=== PATIENT | female | born 1950 | race Caucasian/White ===

== ENCOUNTER 2020-06-17 11:11 | Emergency (ER) | payer MEDICARE, OTHER ==
[~2020-06-17] VITALS: Ht 167.6 cm; Wt 112.5 kg
[2020-06-17] MEDS ORDERED: XARELTO10 MG PO (11:25)
[2020-06-17] MEDS ORDERED: FENOFIBRATE160 MG PO (11:25)
[2020-06-17] MEDS ORDERED: TELMISARTAN40 MG PO (11:26)
[2020-06-17] MEDS ORDERED: ZETIA10 MG PO (11:26)
[2020-06-17] MEDS ORDERED: SPIRONOLACTONE25 MG PO (11:26)
[2020-06-17] MEDS ORDERED: TORSEMIDE20 MG PO (11:27)
[2020-06-17] MEDS ORDERED: NEXIUM 40 MG CA40 M1 PO (11:27)
[2020-06-17] MEDS ORDERED: HYDROCHLOROTHIA25 M2 PO (11:27)
[2020-06-17] MEDS ORDERED: TESSALON PERLE100 MG PO (11:27)
[2020-06-17] MEDS ORDERED: LEVSIN0.125 MG PO (11:28)
[2020-06-17] MEDS ORDERED: CLONIDINE HCL0.2 M2 PO (11:29)
[2020-06-17] MEDS ORDERED: PREDNISONE 10 M10 M1 PO (11:46)
[2020-06-17] MEDS ORDERED: DIPHENHIST50 MG PO (11:46)
[2020-06-17 12:10] VITALS: BP 134/68
== END 2020-06-17 12:11 | disposition home or self-care (01) ==
LOC: M.ERS 11:11
DX: T80.89XA Other complications following infusion, transfusion and therapeutic injection, initial encounter (principal); I10 Essential (primary) hypertension; E78.00 Pure hypercholesterolemia, unspecified; K21.9 Gastro-esophageal reflux disease without esophagitis; I48.91 Unspecified atrial fibrillation; Z88.8 Allergy status to other drugs, medicaments and biological substances; Y84.8 Other medical procedures as the cause of abnormal reaction of the patient, or of later complication, without mention of misadventure at the time of the procedure; Y92.89 Other specified places as the place of occurrence of the external cause

== ENCOUNTER 2020-12-05 09:35 | Emergency (ER) | payer OTHER, MEDICARE ==
[~2020-12-05] VITALS: Ht 165.1 cm; Wt 113.4 kg
[~2020-12-05 09:35] MED LIST: CLONIDINE HCL0.2 M2 PO; DIPHENHIST50 MG PO; FENOFIBRATE160 MG PO; HYDROCHLOROTHIA25 M2 PO; LEVSIN0.125 MG PO; NEXIUM 40 MG CA40 M1 PO; PREDNISONE 10 M10 M1 PO; SPIRONOLACTONE25 MG PO; TELMISARTAN40 MG PO; TESSALON PERLE100 MG PO; TORSEMIDE20 MG PO; XARELTO10 MG PO; ZETIA10 MG PO
[2020-12-05] MEDS ORDERED: METOPROLOL SUC100 MG PO (09:47)
[2020-12-05] MEDS ORDERED: PROTONIX40 M2 PO (09:47)
[2020-12-05] MEDS ORDERED: TORSEMIDE20 MG PO (09:47)
[2020-12-05] MEDS ORDERED: HYDROCHLOROTHIA25 M1 PO (09:47)
[2020-12-05] MEDS ORDERED: MICARDIS40 MG PO (09:48)
[2020-12-05] MEDS ORDERED: FENOFIBRATE160 MG PO (09:48)
[2020-12-05] MEDS ORDERED: NORVASC 2.5 MG2.5 M1 PO (09:48)
[2020-12-05] MEDS ORDERED: SPIRONOLACTONE25 MG PO (09:49)
[2020-12-05] MEDS ORDERED: MIRAPEX0.5 MG PO (09:49)
[2020-12-05] MEDS ORDERED: XARELTO20 MG PO (09:50)
[2020-12-05 10:00] LABS: NUCLEATED RBCS 0 /100WBC
[2020-12-05 10:05] LABS: HEMATOCRIT 35.4 % (37.0-47.0); HEMOGLOBIN 11.9 gm/dL (12.0-15.0); MCHC 33.6 g/dL (28.0-37.0); MCV 89.2 fL (80.0-100.0); PLATELET COUNT* 269 thou/uL (150-400); RBC 3.97 mil/uL (4.20-5.00); RDW-CV 13.4 % (10.5-14.5); WBC 5.9 thou/uL (4.0-11.0)
[2020-12-05 10:11] LABS: CALCIUM 9.5 mg/dL (8.5-10.1); CREATININE 1.3 mg/dL (0.6-1.3); POTASSIUM 3.6 mmol/L (3.5-5.1)
[2020-12-05 10:14] LABS: APTT 28.5 Seconds (25.0-31.3); INR 1.2; PROTIME 12.2 Seconds (9.20-11.50)
[2020-12-05 10:21] LABS: ALBUMIN 3.9 g/dL (3.4-5.0); TOTAL BILIRUBIN 0.3 mg/dL (<0.1-1.0); TOTAL PROTEIN 6.9 g/dL (6.4-8.2)
[2020-12-05 10:23] LABS: ABSOLUTE BASOPHILS 0.1 thou/uL (0.0-0.2); ABSOLUTE EOSINOPHILS 0.1 thou/uL (0.0-0.7); ABSOLUTE LYMPHOCYTES 3.1 thou/uL (0.8-5.3); ABSOLUTE MONOCYTES 0.5 thou/uL (0.0-1.2); ABSOLUTE NEUTROPHILS 2.1 thou/uL (1.6-8.1); ATYPICAL LYMPHS 4 %; OVALOCYTES 1+; PLATELET ESTIMATE ADEQUATE
[2020-12-05 11:03] LABS: URINE BILIRUBIN NEGATIVE (Negative); URINE BLOOD NEGATIVE (Negative); URINE CLARITY CLEAR; URINE COLOR YELLOW; URINE GLUCOSE-RANDOM NEGATIVE (Negative); URINE KETONES NEGATIVE (Negative); URINE NITRITE-REFLEX NEGATIVE (Negative); URINE PROTEIN NEGATIVE (Negative); URINE SPECIFIC GRAVITY 1.015 (1.005-1.030); URINE UROBILINOGEN 0.2 E.U./dl (0.2-1.0)
[2020-12-05 11:08] LABS: URINE LEUKOCYTES-REFLEX 2+ (Negative)
[2020-12-05 11:11] VITALS: BP 138/79
[2020-12-05 11:16] LABS: SQUAMOUS >10 Many /LPF (0-3)
[2020-12-05 11:17] LABS: BACTERIA-REFLEX >30 Many /HPF (None Seen); MUCUS None Seen strn/LPF (None Seen); URINE RBC None Seen /HPF (0-2); URINE WBC-REFLEX 6-15 Few /HPF (0-5)
[2020-12-05 11:18] LABS: CASTS None Seen /LPF (None Seen); CRYSTALS None Seen /LPF (None Seen)
--- NOTE | 2020-12-05 17:29 | EKG ---
[place] [address] ELECTROCARDIOGRAM REPORT Name: ANKUSH RAMIREZ Room: [facility]#: [id number] Admission: 12/05/20 Attend Phys: Discharge: 12/05/20 Date of : 48 Date of Service: 12/05/2059 Report #: [id number] THIS REPORT FOR: //name// [facility] ED Test Date: 2020-12-05 Test Time: 09:59:41 Pat Name: ANKUSH RAMIREZ Department: Room: Gender: [employer]: JAY JAY : 1950 Requested By: Rick Joyce Order Number: [id number] MD: Paul Cohen Measurements Intervals [place] Rate: 63 P: 58 [place]: 59 QRS: 17 QRSD: 98 T: 17 QT: 401 QTc: 411 Interpretive Statements Sinus rhythm Nonspecific ST-T alterations No previous ECG available for comparison Electronically Signed On 12-05-2020 17:29:39 NANOTECHNOLOGY TECHNICIAN by Paul Cohen [email or web address] <ELECTRONICALLY SIGNED> By: Paul Cohen MD, [facility] 12/05/20 1729 Paul Cohen MD, FACC /EPI
== END 2020-12-05 11:12 | disposition home or self-care (01) ==
LOC: M.ERS 09:35
PROVIDERS: Family Medicine
DX: R51.9 Headache, unspecified (principal); I10 Essential (primary) hypertension; I48.91 Unspecified atrial fibrillation; K21.9 Gastro-esophageal reflux disease without esophagitis; E78.00 Pure hypercholesterolemia, unspecified; Z88.5 Allergy status to narcotic agent; Z88.8 Allergy status to other drugs, medicaments and biological substances

== ENCOUNTER 2021-07-25 16:52 | Emergency (ER) | payer OTHER, MEDICARE ==
[~2021-07-25] VITALS: Ht 167.6 cm; Wt 112.5 kg
[~2021-07-25 16:52] MED LIST changes: +HYDROCHLOROTHIA25 M1 PO; +METOPROLOL SUC100 MG PO; +MICARDIS40 MG PO; +MIRAPEX0.5 MG PO; +NORVASC 2.5 MG2.5 M1 PO; +PROTONIX40 M2 PO; +XARELTO20 MG PO
[2021-07-25] MEDS ORDERED: ZETIA10 MG PO (17:05)
[2021-07-25] MEDS ORDERED: TESSALON PERLE100 MG PO (18:55)
[2021-07-25] MEDS ORDERED: MEDROLDOSEPACK PO (18:55)
[2021-07-25] MEDS ORDERED: ZPAK PO (18:55)
[2021-07-25] MEDS ORDERED: APAP W/CODEINE1 TA2 PO (18:55)
[2021-07-25 19:05] VITALS: BP 149/62
== END 2021-07-25 19:05 | disposition home or self-care (01) ==
LOC: M.ERS 16:52
DX: J02.9 Acute pharyngitis, unspecified (principal); I10 Essential (primary) hypertension; E78.00 Pure hypercholesterolemia, unspecified; I48.91 Unspecified atrial fibrillation; K21.9 Gastro-esophageal reflux disease without esophagitis; Z79.899 Other long term (current) drug therapy; Z87.891 Personal history of nicotine dependence; Z88.5 Allergy status to narcotic agent; Z88.6 Allergy status to analgesic agent

== ENCOUNTER 2021-09-25 10:37 | Emergency (ER) | payer OTHER, MEDICARE ==
[~2021-09-25] VITALS: Ht 165.1 cm; Wt 112.5 kg
[~2021-09-25 10:37] MED LIST changes: +APAP W/CODEINE1 TA2 PO; +MEDROLDOSEPACK PO; +ZPAK PO
[2021-09-25] MEDS ORDERED: PROAIR HFA8.5 GM INH (12:39)
[2021-09-25 12:46] VITALS: BP 138/61
== END 2021-09-25 12:46 | disposition home or self-care (01) ==
LOC: M.ERS 10:37
DX: U07.1 COVID-19 (principal); R05.9 Cough, unspecified; I10 Essential (primary) hypertension; E78.00 Pure hypercholesterolemia, unspecified; I48.91 Unspecified atrial fibrillation; K21.9 Gastro-esophageal reflux disease without esophagitis; E66.01 Morbid (severe) obesity due to excess calories; Z79.891 Long term (current) use of opiate analgesic; Z79.899 Other long term (current) drug therapy; Z88.8 Allergy status to other drugs, medicaments and biological substances; Z88.5 Allergy status to narcotic agent; Z87.891 Personal history of nicotine dependence